=== PATIENT | female | born 1965 | race Caucasian/White ===

== ENCOUNTER → 2017-03-10 | Outpatient (CLI) | payer BC ==
[~2017-03-10] MED LIST: BUTALBITAL/APAP1 CAP PO; BYSTOLIC2.5 MG PO; CARDURA 1MG1 MG PO; CLINORIL 1150 MG/TAB PO; NADOLOL; RELPAX20 MG PO; TOPIRAMATE; VICODIN 5/5001 UDTAB PO
== END ==
LOC: MC.RAD 10:49
DX: Z12.31 Encounter for screening mammogram for malignant neoplasm of breast (principal)

== ENCOUNTER → 2018-05-11 | Outpatient (CLI) | payer BC | LOC: MC.RAD 09:29 | DX: Z12.31 Encounter for screening mammogram for malignant neoplasm of breast (principal) ==

== ENCOUNTER → 2019-06-08 | Outpatient (CLI) | payer BC | LOC: MC.RAD 14:51 | DX: Z12.31 Encounter for screening mammogram for malignant neoplasm of breast (principal) ==

== ENCOUNTER 2019-08-30 08:24 | Day surgery (SDC) | payer BC ==
[~2019-08-30] VITALS: Ht 174 cm; Wt 62.1 kg
[2019-08-30 08:49] VITALS: BP 121/83; PULSE 73; TEMP 97.6
[2019-08-30] MEDS ORDERED: AIMOVIG AU70 MG/1 ML SQ (08:53)
[2019-08-30] MEDS ORDERED: RELPAX 40MG TAB40 MG PO (08:54)
[2019-08-30] MEDS ORDERED: ANSAID100 MG (08:55)
[2019-08-30] MEDS ORDERED: ADVIL200 MG PO (08:56)
--- NOTE | 2019-08-30 08:57 | NUR ---
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
[2019-08-30 10:40] VITALS: BP 101/69; PULSE 70; TEMP 97.4
--- NOTE | 2019-08-30 10:40 | NUR ---
Patient arrives to End[facility] bay 3 via cart, accompanied by Endo RN Bobbi. Bedside report received. Patient is drowsy, but easily aroused to voice and oriented. Ambulates with standby assist to chair in room. Monitoring applied - VSS and WNL on room air. Dr. Fox comes to bedside and talks with patient at this time. Patient denies pain, nausea, or need. Offered and receives juice and a muffin to eat. Called patient's , Amaury, to notify of patient being done with procedure. Will continue to monitor.
[2019-08-30 10:55] VITALS: BP 110/82; PULSE 62
--- NOTE | 2019-08-30 10:55 | NUR ---
Patient is resting comfortably in room. She has ate/drank and is tolerating PO well. VSS and WNL on room air. arrives and is brought to the bedside.
[2019-08-30 11:10] VITALS: BP 101/77; PULSE 62
--- NOTE | 2019-08-30 11:10 | NUR ---
VSS and WNL on room air. Denies any pain, nausea, or other need. Patient states "I'm ready to go home". She has met discharge criteria. Discharge instructions discussed, denies any questions, and verbalizes understanding. PIV removed with catheter intact and hemostasis achieved.
--- NOTE | 2019-08-30 11:20 | NUR ---
Patient is escorted to the exit via wheelchair. Discharged to home with ride in private vehicle at 1120.
== END 2019-08-30 11:20 | disposition home or self-care (01) ==
LOC: SDCO 08:24
DX: Z12.11 Encounter for screening for malignant neoplasm of colon (principal); K64.0 First degree hemorrhoids; K64.4 Residual hemorrhoidal skin tags
CPT/HCPCS: OP; J2250; J3010; J7030

== ENCOUNTER → 2022-02-28 | Outpatient (CLI) | payer OTHER ==
[~2022-02-28] MED LIST changes: +ADVIL200 MG PO; +AIMOVIG AU70 MG/1 ML SQ; +ANSAID100 MG; +RELPAX 40MG TAB40 MG PO
== END ==
LOC: MC.RAD 16:53
DX: Z12.31 Encounter for screening mammogram for malignant neoplasm of breast (principal)

== ENCOUNTER → 2022-05-09 | Outpatient (CLI) | payer OTHER | LOC: COL.RAD 13:35 | DX: M25.521 Pain in right elbow (principal); M25.522 Pain in left elbow | CPT/HCPCS: J3301 ==

== ENCOUNTER → 2024-01-02 | Outpatient (CLI) | payer OTHER | LOC: MC.RAD 13:52 | DX: Z12.31 Encounter for screening mammogram for malignant neoplasm of breast (principal) ==